=== PATIENT | male | born 1955 | race Caucasian/White ===

== ENCOUNTER 2019-03-20 11:11 | Inpatient (IN) | payer MEDICARE ==
[2019-03-20 11:44] LABS: CHLORIDE,CL 98 mEq/L (98-106); SODIUM,NA 137 mEq/L (136-145)
[2019-03-20] MEDS ORDERED: Sodium Chloride 0.9% 10 ML Syringe FLUSH PRN (12:43)
[2019-03-20] MEDS ORDERED: Iopamidol 755 Mg/ML 100 ML Bottle IVPUSH ONE (13:01)
[2019-03-20] MEDS: cefTRIAXone 1 GM Vial IVPUSH SCH (13:49)
[2019-03-20] MEDS: Acetaminophen 325 MG Tab PO PRN (16:20)
[2019-03-20] MEDS: Furosemide 40 MG Tab PO SCH (17:15)
[2019-03-20] MEDS: Apixaban 5 MG Tab PO SCH (20:06)
[2019-03-21] MEDS: Acetaminophen 325 MG Tab PO PRN (03:13)
[2019-03-21] MEDS: Apixaban 5 MG Tab PO SCH ×2 (07:52→20:01)
[2019-03-21] MEDS: Furosemide 40 MG Tab PO SCH (07:52)
[2019-03-21] MEDS ORDERED: Albuterol/Ipratropium 3.0-0.5 MG/3 ML Neb Soln INH ONE (08:30)
[2019-03-21 08:53] LABS: CHLORIDE,CL 98 mEq/L (98-106); SODIUM,NA 140 mEq/L (136-145)
--- NOTE | 2019-03-21 09:02 | PCM.PN ---
- General Info Date of Service: 03/21/19 Admission Dx/Problem (Free Text): Atrial Flutter Cellulitis Functional Status: Reports: Pain Controlled, Tolerating Diet, Ambulating - Review of Systems General: Reports: Fever (low grade), Weakness, Fatigue HEENT: Denies: Ear Pain, Sinus Congestion, Sore Throat Pulmonary: Reports: Shortness of Breath, Cough, Sputum, Wheezing Cardiovascular: Reports: Edema. Denies: Chest Pain, Lightheadedness Gastrointestinal: Denies: Abdominal Pain, Nausea, Vomiting Genitourinary: Reports: No Symptoms Musculoskeletal: Reports: No Symptoms Skin: Reports: Other (redness to feet) Neurological: Reports: No Symptoms - Patient Data Vitals - Most Recent: Last Vital Signs Temp 97.3 F 03/21/19 07:51 Pulse 64 03/21/19 07:51 Resp 20 03/21/19 07:51 BP 129/72 03/21/19 07:51 Pulse Ox 97 03/21/19 07:51 Weight - Most Recent: 235 lb 9.6 oz Lab Results Last 24 Hours: Laboratory Results - last 24 hr 03/20/19 03/20/19 03/20/19 Range/Units 11:17 11:17 11:17 WBC 9.4 (5.0-10.0) 10^3/uL RBC 4.81 (4.50-6.00) 10^6/uL Hgb 15.6 (14.0-18.0) g/dL Hct 46.5 (40.0-54.0) % MCV 96.7 H (82.0-94.0) fL MCH 32.4 H (27.0-32.0) pg MCHC 33.5 (33.0-38.0) g/dL RDW Coeff of Umer 11.8 (11.0-15.0) % Plt Count 391 (150-400) 10^3/uL Neut % (Auto) 81.3 (35-85) % Lymph % (Auto) 7.3 L (10-55) % [place] % (Auto) 10.1 (0-16) % Eos % (Auto) 1.0 (0-5) % Baso % (Auto) 0.3 (0-3) % Neut # (Auto) 7.65 H (1.80-7.00) 10^3/uL Lymph # (Auto) 0.69 L (1.00-4.80) 10^3/uL [place] # (Auto) 0.95 H (0.00-0.80) 10^3/uL Eos # (Auto) 0.09 (0.00-0.45) 10^3/uL Baso # (Auto) 0.03 10^3/uL D-Dimer, Quantitative 3.79 H (0.00-0.50) Sodium 137 (136-145) mEq/L Potassium 4.3 (3.5-5.0) mEq/L Chloride 98 (98-106) mEq/L Carbon Dioxide 32 (21-32) mmol/L BUN 15 (7-18) mg/dL Creatinine 0.8 (0.7-1.3) mg/dL Est Cr Clr Drug Dosing TNP Estimated GFR (MDRD) > 60 (>=60) mL/min Glucose 112 H (75-99) mg/dL Uric Acid 6.9 (3.5-7.2) mg/dL Calcium 9.1 (8.4-10.1) mg/dL Troponin I (0.00-0.06) ng/mL C-Reactive Protein 26.0 H (0.2-0.8) mg/dL NT-Pro-B Natriuret Pep 928 (0-1000) pg/mL 03/20/19 03/21/19 Range/Units 11:30 08:24 WBC 6.4 (5.0-10.0) 10^3/uL RBC 4.50 (4.50-6.00) 10^6/uL Hgb 14.6 (14.0-18.0) g/dL Hct 44.5 (40.0-54.0) % MCV 98.9 H (82.0-94.0) fL MCH 32.4 H (27.0-32.0) pg MCHC 32.8 L (33.0-38.0) g/dL RDW Coeff of Umer 11.9 (11.0-15.0) % Plt Count 437 H (150-400) 10^3/uL Neut % (Auto) 72.1 (35-85) % Lymph % (Auto) 13.0 (10-55) % [place] % (Auto) 10.6 (0-16) % Eos % (Auto) 3.8 (0-5) % Baso % (Auto) 0.5 (0-3) % Neut # (Auto) 4.61 (1.80-7.00) 10^3/uL Lymph # (Auto) 0.83 L (1.00-4.80) 10^3/uL [place] # (Auto) 0.68 (0.00-0.80) 10^3/uL Eos # (Auto) 0.24 (0.00-0.45) 10^3/uL Baso # (Auto) 0.03 10^3/uL D-Dimer, Quantitative (0.00-0.50) Sodium (136-145) mEq/L Potassium (3.5-5.0) mEq/L Chloride (98-106) mEq/L Carbon Dioxide (21-32) mmol/L BUN (7-18) mg/dL Creatinine (0.7-1.3) mg/dL Est Cr Clr Drug Dosing Estimated GFR (MDRD) (>=60) mL/min Glucose (75-99) mg/dL Uric Acid (3.5-7.2) mg/dL Calcium (8.4-10.1) mg/dL Troponin I < 0.017 (0.00-0.06) ng/mL C-Reactive Protein (0.2-0.8) mg/dL NT-Pro-B Natriuret Pep (0-1000) pg/mL Med Orders - Current: Current Medications Acetaminophen (Tylenol) 325 mg PO Q4H PRN PRN Reason: Fever Last Admin: 03/21/19 03:13 Dose: 325 mg Albuterol/Ipratropium (Duoneb 3.0-0.5 Mg/3 Ml) 3 ml NEB QIDRT [facility] Apixaban (Eliquis) 5 mg PO BID [facility] Last Admin: 03/21/19 07:52 Dose: 5 mg Ceftriaxone Sodium (Rocephin) 1 gm IVPUSH DAILY@1200 [facility] Last Admin: 03/20/19 13:49 Dose: 1 gm Furosemide (Lasix) 40 mg PO DAILY [facility] Last Admin: 03/21/19 07:52 Dose: 40 mg Methylprednisolone Sodium Succinate (Solu-Medrol) 62.5 mg IVPUSH Q12H [facility] Sodium Chloride (Saline Flush) 10 ml FLUSH ASDIRECTED PRN PRN Reason: Keep Vein Open Discontinued Medications Albuterol/Ipratropium (Duoneb 3.0-0.5 Mg/3 Ml) 3 ml INH ONETIME ONE Stop: 03/21/19 08:31 Iopamidol (Isovue-370 (76%)) 100 ml IVPUSH ONETIME ONE Stop: 03/20/19 13:02 Last Admin: 03/20/19 17:21 Dose: Not Given - Exam General: Alert, Oriented HEENT: Mucous Membr. Moist/[place] Neck: Supple Lungs: Decreased Breath Sounds, Wheezing Cardiovascular: Regular Rate, Regular Rhythm GI/Abdominal Exam: Normal Bowel Sounds, Soft, Non-Tender Extremities: Normal Inspection, Pedal Edema, Increased Warmth (has redness and warmth to the distal half of left foot), Redness Skin: Warm, Dry Wound/Incisions: Erythema Neurological: No New Focal Deficit - Problem List & Annotations (1) Atrial flutter SNOMED Code(s): 8719801 Code(s): I48.92 - UNSPECIFIED ATRIAL FLUTTER Status: Acute Priority: High Current Visit: Yes Qualifiers: Atrial flutter type: unspecified Qualified Code(s): I48.92 - Unspecified atrial flutter (2) Cellulitis SNOMED Code(s): 930215981 Code(s): L03.90 - CELLULITIS, UNSPECIFIED Status: Acute Priority: High Current Visit: Yes Qualifiers: Site of cellulitis: extremity Site of cellulitis of extremity: lower extremity Laterality: left Qualified Code(s): L03.116 - Cellulitis of left lower limb - Problem List Review Problem List Initiated/Reviewed/Updated: Yes - My Orders Last 24 Hours: My Active Orders 03/21/19 08:24 BASIC METABOLIC PANEL,BMP [CHEM] Routine C-REACTIVE PROTEIN [CHEM] Routine 03/21/19 08:37 RT Aerosol Therapy [RC] ASDIRECTED 03/21/19 08:45 methylPREDNISolone Sod Succ [Solu-MEDROL] 62.5 mg IVPUSH Q12H 03/21/19 12:00 Albuterol/Ipratropium [DuoNeb 3.0-0.5 MG/3 ML] 3 ml NEB QIDRT - Assessment Assessment:: Atrial Flutter Cellulitis - Plan Plan:: Patient denies any chest pain. Does get short of breath with exertion. Lung sounds note expiratory wheezing, diminished throughout. Oxygen sats do drop below 90% when up. He denies any history of noted chronic lung concerns. Initial EKG yesterday read atrial flutter. Denies palpitations. Telemetry shows normal sinus rhythm this am. Labs note a normal WBC today, 6.4. CRP 16. Low grade temps. Left foot continues to have redness and warmth, edema bilaterally at 1+. Will add DuoNebs, Solu Medrol today. Continue Rocephin. EKG repeated this am, shows NSR with BBB. Will follow
[2019-03-21] MEDS ORDERED: Iopamidol 755 Mg/ML 100 ML Bottle IV ONE (10:21)
[2019-03-21] MEDS: methylPREDNISolone Sodium Succinate 125 MG/2 ML SDV IVPUSH SCH ×2 (11:10→20:00)
[2019-03-21] MEDS: cefTRIAXone 1 GM Vial IVPUSH SCH (11:37)
[2019-03-21] MEDS: Albuterol/Ipratropium 3.0-0.5 MG/3 ML Neb Soln NEB SCH ×3 (11:37→20:01)
[2019-03-22] MEDS: Apixaban 5 MG Tab PO SCH (08:22)
[2019-03-22] MEDS: Albuterol/Ipratropium 3.0-0.5 MG/3 ML Neb Soln NEB SCH ×4 (08:22→20:40)
[2019-03-22] MEDS: Furosemide 40 MG Tab PO SCH (08:22)
[2019-03-22] MEDS: methylPREDNISolone Sodium Succinate 125 MG/2 ML SDV IVPUSH SCH ×2 (08:23→20:40)
[2019-03-22] MEDS: cefTRIAXone 1 GM Vial IVPUSH SCH (11:45)
[2019-03-22] MEDS: Formoterol/Mometasone 200-5 MCG 8.8 GM Inhaler IH SCH (20:39)
--- NOTE | 2019-03-22 20:41 | PCM.PN ---
- General Info Date of Service: 03/22/19 Admission Dx/Problem (Free Text): Atrial Flutter Cellulitis Functional Status: Reports: Pain Controlled, Tolerating Diet, Ambulating - Review of Systems General: Denies: Fever, Weakness, Fatigue HEENT: Reports: No Symptoms Pulmonary: Reports: Shortness of Breath, Cough, Wheezing Cardiovascular: Reports: Edema. Denies: Chest Pain, Lightheadedness Gastrointestinal: Denies: Abdominal Pain, Nausea, Vomiting Genitourinary: Reports: No Symptoms Musculoskeletal: Reports: Foot Pain - Patient Data Vitals - Most Recent: Last Vital Signs Temp 98.4 F 03/22/19 07:49 Pulse 77 03/22/19 16:00 Resp 18 03/22/19 16:00 BP 151/77 H 03/22/19 16:00 Pulse Ox 94 L 03/22/19 16:00 Weight - Most Recent: 235 lb 9.6 oz I&O - Last 24 Hours: Intake & Output 03/22/19 03/22/19 03/22/19 06:59 14:59 22:59 Intake Total 650 Balance 650 Med Orders - Current: Current Medications Acetaminophen (Tylenol) 325 mg PO Q4H PRN PRN Reason: Fever Last Admin: 03/21/19 03:13 Dose: 325 mg Albuterol/Ipratropium (Duoneb 3.0-0.5 Mg/3 Ml) 3 ml NEB QIDRT [facility] Last Admin: 03/22/19 16:14 Dose: 3 ml Ceftriaxone Sodium (Rocephin) 1 gm IVPUSH DAILY@1200 [facility] Last Admin: 03/22/19 11:45 Dose: 1 gm Furosemide (Lasix) 40 mg PO DAILY [facility] Last Admin: 03/22/19 08:22 Dose: 40 mg Methylprednisolone Sodium Succinate (Solu-Medrol) 62.5 mg IVPUSH Q12H [facility] Last Admin: 03/22/19 08:23 Dose: 62.5 mg Mometasone Furoate/Formoterol Fumar (Dulera 200-5 Mcg) 2 puff IH BIDRT [facility] Sodium Chloride (Saline Flush) 10 ml FLUSH ASDIRECTED PRN PRN Reason: Keep Vein Open Discontinued Medications Albuterol/Ipratropium (Duoneb 3.0-0.5 Mg/3 Ml) 3 ml INH ONETIME ONE Stop: 03/21/19 08:31 Last Admin: 03/21/19 09:21 Dose: 3 ml Apixaban (Eliquis) 5 mg PO BID [facility] Last Admin: 03/22/19 08:22 Dose: 5 mg Iopamidol (Isovue-370 (76%)) 100 ml IVPUSH ONETIME ONE Stop: 03/20/19 13:02 Last Admin: 03/20/19 17:21 Dose: Not Given Iopamidol (Isovue-370 (76%)) 100 ml IV .STK-MED ONE Stop: 03/21/19 10:22 - Exam Quality Assessment: Supplemental Oxygen General: Alert, Oriented HEENT: Mucous Membr. Moist/[place] Neck: Supple Lungs: Decreased Breath Sounds, Wheezing Cardiovascular: Regular Rate, Regular Rhythm GI/Abdominal Exam: Normal Bowel Sounds, Soft, Non-Tender Extremities: Other (bilateral swelling of feet has improved since yesterday. Minimal redness to left foot, minimal warmth. ) Skin: Warm, Dry Wound/Incisions: Erythema Improving Neurological: No New Focal Deficit - Problem List & Annotations (1) Atrial flutter SNOMED Code(s): 9708990 Code(s): I48.92 - UNSPECIFIED ATRIAL FLUTTER Status: Acute Priority: High Current Visit: Yes Qualifiers: Atrial flutter type: unspecified Qualified Code(s): I48.92 - Unspecified atrial flutter (2) Cellulitis SNOMED Code(s): 126235753 Code(s): L03.90 - CELLULITIS, UNSPECIFIED Status: Acute Priority: High Current Visit: Yes Qualifiers: Site of cellulitis: extremity Site of cellulitis of extremity: lower extremity Laterality: left Qualified Code(s): L03.116 - Cellulitis of left lower limb - Problem List Review Problem List Initiated/Reviewed/Updated: Yes - My Orders Last 24 Hours: My Active Orders 03/22/19 20:00 Mometasone/Formoterol [Dulera 200-5 MCG] 2 puff IH BIDRT - Assessment Assessment:: Atrial Flutter Cellulitis - Plan Plan:: Patient denies any chest pain. Does get short of breath with exertion. Lung sounds note expiratory wheezing, diminished throughout. Oxygen sats do drop below 90% when up. He denies any history of noted chronic lung concerns. Initial EKG yesterday read atrial flutter. Denies palpitations. Telemetry shows normal sinus rhythm this am. Labs note a normal WBC today, 6.4. CRP 16. Low grade temps. Left foot continues to have redness and warmth, edema bilaterally at 1+. Will add DuoNebs, Solu Medrol today. Continue Rocephin. EKG repeated this am, shows NSR with BBB. Will follow 03-22-2019 Patient admits to big improvement to pain in feet. States swelling is much improved, able to ambulate now without pain. Was started on steroids yesterday for his lungs, has benefitted the swelling of his feet. Redness improved, question gouty arthropathy of feet. Afebrile. Telemetry continues to show NSR. Lung sounds improved today, diminished but wheezing improved. Oxygen sat still drops if oxygen weaned. Will continue to attempt to wean off oxygen. Start Dulera. Continue nebs and steroids. Stop Eliquis. Possible discharge tomorrow.
[2019-03-23] MEDS: Formoterol/Mometasone 200-5 MCG 8.8 GM Inhaler IH SCH (08:01)
[2019-03-23] MEDS: Furosemide 40 MG Tab PO SCH (08:02)
[2019-03-23] MEDS: methylPREDNISolone Sodium Succinate 125 MG/2 ML SDV IVPUSH SCH (08:02)
[2019-03-23] MEDS: Albuterol/Ipratropium 3.0-0.5 MG/3 ML Neb Soln NEB SCH ×3 (08:10→16:10)
[2019-03-23] MEDS: cefTRIAXone 1 GM Vial IVPUSH SCH (12:08)
--- NOTE | 2019-03-23 16:53 | PCM.DCSUM1 ---
Discharge Summary - Hospital Course Free Text/Narrative:: Patient presented to clinic to see Dr. Barrera for bilateral foot pain and swelling. Admits has been having difficulty ambulating about due to foot pain. Had noted mild redness to left foot as well. He has been feeling short of breath. Work up from clinic did show elevated d-dimer, EKG that showed new onset atrial flutter. Uric acid level was normal. Admitted and started on IV Rocephin. Proceed with CTA of chest. Cardiac monitoring. Diagnosis: Stroke: No Modified [place] Scale: No Symptoms at All Modified [place] Scale Score: 0 - Discharge Data Discharge Date: 03/23/19 Discharge Disposition: Home, Self-Care 01 Condition: Good - Discharge Diagnosis/Problem(s) (1) Atrial flutter SNOMED Code(s): 5117169 ICD Code: I48.92 - UNSPECIFIED ATRIAL FLUTTER Status: Resolved Priority: High Qualifiers: Atrial flutter type: unspecified Qualified Code(s): I48.92 - Unspecified atrial flutter (2) Cellulitis SNOMED Code(s): 398247188 ICD Code: L03.90 - CELLULITIS, UNSPECIFIED Status: Acute Priority: High Qualifiers: Site of cellulitis: extremity Site of cellulitis of extremity: lower extremity Laterality: left Qualified Code(s): L03.116 - Cellulitis of left lower limb (3) COPD (chronic obstructive pulmonary disease) SNOMED Code(s): 79999519 ICD Code: J44.9 - CHRONIC OBSTRUCTIVE PULMONARY DISEASE, UNSPECIFIED Status : Acute Priority: High Qualifiers: COPD type: COPD with acute exacerbation Qualified Code(s): J44.1 - Chronic obstructive pulmonary disease with (acute) exacerbation (4) Gout SNOMED Code(s): 19574981 ICD Code: M10.9 - GOUT, UNSPECIFIED Status: Acute Qualifiers: Gout site: foot Encounter type: initial encounter Chronicity: acute Laterality: left - Patient Summary/Data Complications: none Hospital Course: Patient admitted for questionable cellulitis of foot, new onset atrial flutter. Cardiac monitoring did show normal sinus rhythm, repeat EKG shows NSR. Now question artifact present on initial EKG as continued P wave has been noted. Patient has not had any chest pain, CTA of chest negative for PE. Lung sounds have been diminished, expiratory wheezing noted. Unable to wean off oxygen during stay. Was placed on DuoNebs, steroids. Much improvement of air flow but continues to require oxygen related to underlying COPD. Incidently, feet feel much better, less swollen. Likely swelling of feet gout as did respond well to the steroids. No further redness noted to left foot. Did stop Eliquis as atrial flutter not present after admit. Blood pressure was elevated during stay. Was started on Norvasc. Patient was also started on Dulera and will continue this indefinitely. Discharge home on Spiriva as well. prednisone daily for 5 days. Follow up with Dr. Barrera in 2 weeks. Oxygen arranged as does require up to 6 liters of oxygen to maintain sats greater than 90% with ambulation. - Patient Instructions Diet: Usual Diet as Tolerated Activity: As Tolerated - Discharge Plan *PRESCRIPTION DRUG MONITORING PROGRAM REVIEWED*: No *COPY OF PRESCRIPTION DRUG MONITORING REPORT IN PATIENT YESSICA: No Prescriptions/Med Rec: amLODIPine [Norvasc] 5 mg PO BEDTIME #30 tablet Mometasone/Formoterol [Dulera 200-5 MCG] 2 puff IH BIDRT #1 inhaler predniSONE 20 mg PO DAILY #5 tab Tiotropium [Spiriva] 18 mcg INH BID #1 cap Home Medications: Home Meds Mometasone/Formoterol [Dulera 200-5 MCG] 2 puff IH BIDRT #1 inhaler 03/23/19 [Rx ] Tiotropium [Spiriva] 18 mcg INH BID #1 cap 03/23/19 [Rx] amLODIPine [Norvasc] 5 mg PO BEDTIME #30 tablet 03/23/19 [Rx] predniSONE 20 mg PO DAILY #5 tab 03/23/19 [Rx] Patient Handouts: Cellulitis, Adult, Atrial Flutter Referrals: Emanuel Barrera MD [Primary Care Provider] - (Follow up with Dr. Barrera in 2 weeks for recheck) - Discharge Summary/Plan Comment DC Time >30 min.: No - General Info Date of Service: 03/23/19 Admission Dx/Problem (Free Text: Atrial Flutter Cellulitis Functional Status: Reports: Pain Controlled, Tolerating Diet, Ambulating - Review of Systems General: Denies: Fever, Weakness, Fatigue HEENT: Reports: No Symptoms Pulmonary: Reports: Shortness of Breath, Cough, Wheezing Cardiovascular: Reports: Edema. Denies: Chest Pain, Lightheadedness Gastrointestinal: Denies: Abdominal Pain, Nausea, Vomiting Genitourinary: Reports: No Symptoms Musculoskeletal: Reports: Foot Pain Skin: Reports: No Symptoms Neurological: Reports: No Symptoms Psychiatric: Reports: No Symptoms - Patient Data Vitals - Most Recent: Last Vital Signs Temp 97.7 F 03/23/19 12:00 Pulse 87 03/23/19 12:00 Resp 20 03/23/19 12:00 BP 151/81 H 03/23/19 12:00 Pulse Ox 90 L 03/23/19 12:00 Weight - Most Recent: 235 lb 9.6 oz Med Orders - Current: Current Medications Acetaminophen (Tylenol) 325 mg PO Q4H PRN PRN Reason: Fever Last Admin: 03/21/19 03:13 Dose: 325 mg Albuterol/Ipratropium (Duoneb 3.0-0.5 Mg/3 Ml) 3 ml NEB QIDRT [facility] Last Admin: 03/23/19 16:10 Dose: 3 ml Amlodipine Besylate (Norvasc) 5 mg PO BEDTIME [facility] Ceftriaxone Sodium (Rocephin) 1 gm IVPUSH DAILY@1200 [facility] Last Admin: 03/23/19 12:08 Dose: 1 gm Furosemide (Lasix) 40 mg PO DAILY [facility] Last Admin: 03/23/19 08:02 Dose: 40 mg Methylprednisolone Sodium Succinate (Solu-Medrol) 62.5 mg IVPUSH Q12H [facility] Last Admin: 03/23/19 08:02 Dose: 62.5 mg Mometasone Furoate/Formoterol Fumar (Dulera 200-5 Mcg) 2 puff IH BIDRT [facility] Last Admin: 03/23/19 08:01 Dose: 2 puff Sodium Chloride (Saline Flush) 10 ml FLUSH ASDIRECTED PRN PRN Reason: Keep Vein Open Discontinued Medications Albuterol/Ipratropium (Duoneb 3.0-0.5 Mg/3 Ml) 3 ml INH ONETIME ONE Stop: 03/21/19 08:31 Last Admin: 03/21/19 09:21 Dose: 3 ml Apixaban (Eliquis) 5 mg PO BID [facility] Last Admin: 03/22/19 08:22 Dose: 5 mg Iopamidol (Isovue-370 (76%)) 100 ml IVPUSH ONETIME ONE Stop: 08/27/19 13:02 Last Admin: 03/20/19 17:21 Dose: Not Given Iopamidol (Isovue-370 (76%)) 100 ml IV .STK-MED ONE Stop: 03/21/19 10:22 - Exam General: Reports: Alert, Oriented HEENT: Reports: Mucous Membr. Moist/[place] Neck: Reports: Supple Lungs: Reports: Clear to Auscultation, Normal Respiratory Effort Cardiovascular: Reports: Regular Rate, Regular Rhythm GI/Abdominal Exam: Normal Bowel Sounds, Soft, Non-Tender Extremities: Pedal Edema (1+ in feet, improved. No redness.) Skin: Reports: Warm, Dry Neurological: Reports: No New Focal Deficit
[2019-03-23] MEDS ORDERED: amLODIPine 2.5 MG Tab PO SCH (20:00)
== END 2019-03-23 17:45 | disposition home or self-care (01) | DRG 603 ==
LOC: CC.MS 11:11 → CC.FCMC 11:11 → UNDOADMIN 12:06 → CC.MS 12:06
PROVIDERS: ADMIT Family Medicine; ATTEND Family Medicine
DX: L03.116 Cellulitis of left lower limb (principal); I48.92 Unspecified atrial flutter; R60.0 Localized edema; F17.210 Nicotine dependence, cigarettes, uncomplicated; L53.9 Erythematous condition, unspecified; J44.1 Chronic obstructive pulmonary disease with (acute) exacerbation; L03.90 Cellulitis, unspecified; M10.9 Gout, unspecified; Z79.899 Other long term (current) drug therapy
CPT/HCPCS: 36415; 71046; 71275; 80048; 83880; 84484; 84550; 85025; 85379; 86140; 93005; 93306; 94060; 94640; A9270-GY; J0696; J2930; J7620-GY; Q9967